=== PATIENT | female | born 1965 | race Caucasian/White ===

== ENCOUNTER → 2017-03-07 | Outpatient (CLI) | payer OTHER ==
[~2017-03-07] MED LIST: BUPR-79 PO; FLM4 PO; LEVO100T PO; PANT40TA PO; SIMV20TA2 PO; TAMS0.4C38 PO
--- NOTE | 2017-03-07 12:19 | DIAGNOSTIC IMAGING REPORT ---
RIGHT SHOULDER MIN 2 VIEWS ROUTINE CLINICAL HISTORY: Right shoulder pain. COMPARISON: None. DISCUSSION: No fractures or dislocations are visualized. There are surgical clips in the right axillary region. No erosive or destructive changes are visualized. IMPRESSION: No fractures identified. Electronically signed by: Braden Mendez M.D. 03/07/2017 12:18 PM Dictated Date/Time: 03/07/2017 12:17 PM
== END | disposition home or self-care (01) ==
LOC: C.RAD1850 12:02
PROVIDERS: ATTEND Nurse Practitioner Adult Health
DX: M25.511 Pain in right shoulder (principal)